=== PATIENT | female | born 1980 | race Asian ===

== ENCOUNTER 2016-09-04 06:00 | Inpatient (IN) | payer SELFPAY ==
[~2016-09-04] VITALS: Ht 152.4 cm; Wt 56.2 kg
[2016-09-04] MEDS ORDERED: CITRIC ACID/SODIUM CITRATE 30 ML UDC PO ONE (06:45)
[2016-09-04] MEDS ORDERED: CEFAZOLIN 2 GM IVPB PREMIX 50 ML IV ONE (06:45)
[2016-09-04 06:58] LABS: BILIRUBIN,URINE NEGATIVE (NEGATIVE); CLARITY/URINE SL HAZY (CLEAR); COLOR,URINE YELLOW (YELLOW); GLUCOSE,URINE NEGATIVE (NEGATIVE); KETONES,URINE NEGATIVE (NEGATIVE); LEUKOCYTE ESTERASE ,URINE 1+ (NEGATIVE); NITRITE, URINE NEGATIVE (NEGATIVE); PROTEIN URINE NEGATIVE (NEGATIVE)
[2016-09-04 07:06] LABS: BASOPHILS % (AUTO) 0.3 % (0.0-2.0); EOSINOPHILS % (AUTO) 0.6 % (0.0-4.0); HEMATOCRIT 35.7 % (36-48); HEMOGLOBIN 12.9 g/dL (12.0-16.0); LYMPHOCYTES # (AUTO) 1.9 K/uL (1.0-5.5); LYMPHOCYTES % (AUTO) 23.4 % (20.5-51.5); MEAN CORPUSCULAR HEMOGLOBIN 34 pg (27-31); MEAN CORPUSCULAR HGB CONC 36 % (32-36); MEAN CORPUSCULAR VOLUME 93 fL (79.0-98.0); MONOCYTES # (AUTO) 0.4 K/uL (0.0-1.0); NEUTROPHILS # (AUTO) 5.9 K/uL (1.8-7.7); NEUTROPHILS % (AUTO) 70.7 % (40.0-70.0); PLATELET COUNT (AUTO) 82 K/uL (130-430); RED BLOOD CELL COUNT(AUTO) 3.84 MIL/uL (4.2-6.2); RED CELL DISTRIBUTION WIDTH 12.4 % (9.0-15.0); WHITE BLOOD COUNT (AUTO) 8.2 K/uL (4.8-10.8)
[2016-09-04 07:16] LABS: BLOOD, URINE TRACE (NEGATIVE)
[2016-09-04] MEDS ORDERED: OXYTOCIN/NORMAL SALINE 1,000 ML IV SCH (07:24)
[2016-09-04] MEDS ORDERED: MEASLES,MUMPS&RUBELLA VACC/PF 12500 UNIT/0.5 ML VIAL SUBQ PRN (07:30)
[2016-09-04] MEDS ORDERED: METHYLERGONOVINE MALEATE 0.2 MG/ML AMP IM PRN (07:30)
[2016-09-04] MEDS ORDERED: TRIMETHOBENZAMIDE HCL 200 MG/2 ML VIAL IM PRN (07:30)
[2016-09-04] MEDS ORDERED: HYDROcodone/ACETAMIN 5-325 MG TAB (NORCO/ VICODIN) PO PRN (07:30)
[2016-09-04] MEDS ORDERED: TEMAZEPAM 15 MG CAPSULE PO PRN (07:30)
[2016-09-04] MEDS ORDERED: OXYCODONE/ACETAMINOPHEN 5-325 TABLET PO PRN (07:30)
[2016-09-04 08:12] LABS: BACTERIA,URINE MODERATE /HPF (None Seen); RBC,URINE 0-3 /HPF (0-3)
[2016-09-04] MEDS ORDERED: LR 1,000 ML IV SCH (08:13)
[2016-09-04] MEDS ORDERED: KETOROLAC TROMETHAMINE 60 MG/2 ML VIAL IM PRN (08:15)
[2016-09-04] MEDS ORDERED: NALOXONE HCL 0.4 MG/ML AMP (NARCAN) IVP PRN (08:15)
[2016-09-04] MEDS ORDERED: ONDANSETRON HCL 4 MG/2 ML VIAL IVP PRN (08:15)
[2016-09-04] MEDS ORDERED: MEPERIDINE HCL/PF 50 MG/ML AMP IVP PRN ×2 (08:15)
[2016-09-04] MEDS ORDERED: METOCLOPRAMIDE HCL 10 MG/2 ML VIAL IVP PRN (08:15)
[2016-09-04] MEDS ORDERED: DIPHENHYDRAMINE INJ 50 MG/ML VIAL IM PRN (08:15)
[2016-09-04] MEDS ORDERED: MEPERIDINE HCL/PF 25 MG/ML DISP.SYRIN IVP PRN (08:15)
[2016-09-04] MEDS ORDERED: MORPHINE SULFATE 10MG/10ML PF AMP SP SCH (08:15)
[2016-09-04] MEDS ORDERED: OXYTOCIN/NORMAL SALINE 1,000 ML IV ONE (08:41)
[2016-09-04] MEDS ORDERED: LR 1,000 ML IV.SOLN IV ONE (14:00)
[2016-09-04] MEDS ORDERED: MIDAZOLAM HCL 5 MG/5 ML VIAL ONE (14:00)
[2016-09-04] MEDS ORDERED: NS IRRIG SOLN 1000 ML IR ONE (14:00)
[2016-09-04] MEDS ORDERED: fentaNYL CITRATE/PF 100 MCG/2 ML AMP ONE (14:00)
[2016-09-04] MEDS ORDERED: ePHEDrine sulfate 50 MG/ML VIAL ONE (14:00)
[2016-09-04] MEDS ORDERED: ONDANSETRON HCL 4 MG/2 ML VIAL ONE (14:00)
[2016-09-04] MEDS ORDERED: OXYTOCIN 10 UNIT/ML VIAL ONE (14:00)
[2016-09-04 14:30] VITALS: BP_SYST 113
[2016-09-04 14:55] VITALS: BP_SYST 111
[2016-09-04] MEDS: LR 1,000 ML IV SCH ×2 (15:00→21:23)
[2016-09-04] MEDS: SIMETHICONE 80 MG TAB.CHEW PO SCH (18:40)
[2016-09-04 23:16] VITALS: BP_SYST 116
[2016-09-05] MEDS: IBUPROFEN 800 MG TABLET PO PRN ×4 (02:10→20:07)
[2016-09-05] MEDS: LR 1,000 ML IV SCH (05:10)
[2016-09-05 07:53] LABS: BASOPHILS # (AUTO) 0.1 K/uL (0.0-0.2); BASOPHILS % (AUTO) 0.6 % (0.0-2.0); EOSINOPHILS # (AUTO) 0.1 K/uL (0.0-0.4); EOSINOPHILS % (AUTO) 0.5 % (0.0-4.0); HEMATOCRIT 33.7 % (36-48); HEMOGLOBIN 11.8 g/dL (12.0-16.0); LYMPHOCYTES # (AUTO) 1.4 K/uL (1.0-5.5); LYMPHOCYTES % (AUTO) 12.8 % (20.5-51.5); MEAN CORPUSCULAR HEMOGLOBIN 33 pg (27-31); MEAN CORPUSCULAR HGB CONC 35 % (32-36); MEAN CORPUSCULAR VOLUME 95 fL (79.0-98.0); MONOCYTES # (AUTO) 0.3 K/uL (0.0-1.0); MONOCYTES % (AUTO) 2.4 % (1.7-9.3); PLATELET COUNT (AUTO) 95 K/uL (130-430); RED BLOOD CELL COUNT(AUTO) 3.57 MIL/uL (4.2-6.2); RED CELL DISTRIBUTION WIDTH 12.6 % (9.0-15.0); WHITE BLOOD COUNT (AUTO) 10.9 K/uL (4.8-10.8)
[2016-09-05 10:18] LABS: NEUTROPHILS % (AUTO) 83.7 % (40.0-70.0)
[2016-09-05] MEDS: SENNOSIDES/DOCUSATE SODIUM 1 TAB TABLET(SENOKOT-S) PO SCH (20:06)
[2016-09-05] MEDS: SIMETHICONE 80 MG TAB.CHEW PO SCH (20:06)
[2016-09-06] MEDS: IBUPROFEN 800 MG TABLET PO PRN ×4 (01:26→18:00)
[2016-09-06] MEDS: SIMETHICONE 80 MG TAB.CHEW PO SCH ×4 (09:09→21:55)
[2016-09-06] MEDS: SENNOSIDES/DOCUSATE SODIUM 1 TAB TABLET(SENOKOT-S) PO SCH (21:00)
[2016-09-07] MEDS: IBUPROFEN 800 MG TABLET PO PRN ×3 (00:46→14:10)
[2016-09-07] MEDS ORDERED: DIPH-TET-PERTUS Vaccine 0.5 ML VIAL/Tdap (ADACEL) I.M. PRN (10:45)
[2016-09-07] MEDS ORDERED: FLU VACC QS 2016-17(36MOS+)/PF 0.5 ML/SYR SYRINGE I.M. PRN (11:00)
[2016-09-07] MEDS: SIMETHICONE 80 MG TAB.CHEW PO SCH (14:09)
[2016-09-07] MEDS: SENNOSIDES/DOCUSATE SODIUM 1 TAB TABLET(SENOKOT-S) PO SCH (14:09)
== END 2016-09-07 16:30 | disposition home or self-care (01) | DRG 766 ==
LOC: SPU 06:00
PROVIDERS: ADMIT Obstetrics & Gynecology; ATTEND Obstetrics & Gynecology
PROC: 10D00Z1 Extraction of Products of Conception, Low, Open Approach (ICD-10-PCS; principal; 2016-09-04 07:30)
DX: O80 Encounter for full-term uncomplicated delivery (principal); Z3A.40 40 weeks gestation of pregnancy; Z37.0 Single live birth; Z23 Encounter for immunization
CPT/HCPCS: 36415; 81000-TC; 85025; 86592; 86886; 86900; 86901; 90715; 94010; 94760; J0690; J1885; J2250; J2405; J2590; J3010; J7120